=== PATIENT | female | born 1990 | race African-American/Black ===

== ENCOUNTER 2017-09-13 19:22 | Emergency (ER) | payer OTHER ==
[2017-09-13 19:35] VITALS: BP 145/94; PULSE 82; TEMP 98.7; BMI 29.5
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
--- NOTE | 2017-09-13 20:18 | PDOC ---
History of Present Illness - General Chief Complaint: Injury Stated Complaint: FALL/INJURY Time Seen by Provider: 09/13/17 19:31 History Source: Patient - History of Present Illness Occurred: reports: this evening Pain Location: reports: back, neck, upper extremity Past History - Past Medical History Allergies/Adverse Reactions: Allergies Allergy/AdvReac Type Severity Reaction Status Date / Time No Known Allergies Allergy Verified 09/13/17 20:42 Home Medications: Ambulatory Orders Albuterol Sulfate Inhaler - [Ventolin Hfa Inhaler -] 2 inh PO Q4H 09/13/17 Cyclobenzaprine HCl [Flexeril -] 10 mg PO TID #9 tablet 09/13/17 Ibuprofen [Motrin -] 600 mg PO QID #28 tablet 09/13/17 Ranitidine HCl [Zantac] 150 mg PO ASDIR 09/13/17 COPD: No - Suicide/Smoking/Psychosocial Hx Smoking History: Never smoked Review of Systems - Review of Systems HEENTM: No: Blurred Vision ABD/GI: No: Vomiting Neurological: Yes: Headache. No: Dizziness *Physical Exam - Vital Signs Last Vital Signs Temp Pulse Resp BP Pulse Ox 98.7 F 82 18 145/94 96 09/13/17 19:30 09/13/17 19:30 09/13/17 19:30 09/13/17 19:30 09/13/17 19:30 - Physical Exam General Appearance: Yes: Appropriately Dressed, Mild Distress HEENT: positive: Normal Voice. negative: Scleral Icterus (R), Scleral Icterus ( L) Neck: positive: Tender (to b/l neck, no midline ttp, FROMI, UE strength intact b /l), Supple Respiratory/Chest: negative: Respiratory Distress Gastrointestinal/Abdominal: positive: Soft. negative: Tender Musculoskeletal: positive: Other (diffuse ttp to abck) Extremity: positive: Normal Inspection. negative: Tender, Swelling Integumentary: positive: Dry, Warm Neurologic: positive: Fully Oriented, Alert, Normal Mood/Affect Medical Decision Making - Medical Decision Making 09/13/17 20:17 27-year-old female, no significant history with multiple complaints status post fall on black ice tonight. She states she fell onto her back and hit the back of her head, but no LOC, dizziness, nausea, vomiting or visual changes. Does report some pain to occiput, neck and back diffusely. Also complaining of pain to LUE. Patient in mild distress but stable and neurologically intact. No signs of serious injury at this time and doubt pt need any imaging. Patient, however, insists on getting x-rays that was ordered from triage. Pain control in ER 09/13/17 22:17 X-rays unremarkable. Will discharge with pain control and PMD follow-up as needed *DC/Admit/Observation/Transfer Diagnosis at time of Disposition: Neck strain Qualifiers: Encounter type: initial encounter Qualified Code(s): S16.1XXA - Strain of muscle, fascia and tendon at neck level, initial encounter Back strain Qualifiers: Encounter type: initial encounter Qualified Code(s): S39.012A - Strain of muscle, fascia and tendon of lower back, initial encounter - Discharge Dispostion Disposition: HOME Condition at time of disposition: Improved - Prescriptions Prescriptions: Cyclobenzaprine HCl [Flexeril -] 10 mg PO TID #9 tablet Ibuprofen [Motrin -] 600 mg PO QID #28 tablet - Referrals Referrals: Ramesh Fish MD [Primary Care Provider] - - Patient Instructions Printed Discharge Instructions: Muscle Strain Additional Instructions: Your x-rays are all negative. Take Motrin and Flexeril as prescribed and follow -up with your primary care physician - Post Discharge Activity
[2017-09-13] MEDS ORDERED: IBUPROFEN 400 MG TABLET (FP) PO ONE (20:37)
== END 2017-09-13 22:23 | disposition home or self-care (01) ==
LOC: JERFT 19:22
DX: S16.1XXA Strain of muscle, fascia and tendon at neck level, initial encounter (principal); S39.012A Strain of muscle, fascia and tendon of lower back, initial encounter; W00.2XXA Other fall from one level to another due to ice and snow, initial encounter; Y93.89 Activity, other specified; Y92.89 Other specified places as the place of occurrence of the external cause; Y99.9 Unspecified external cause status; Y99.8 Other external cause status
CPT/HCPCS: 72050-TC; 72100-TC; 73030-TC-LT; 73060-TC-LT; 73110-TC-LT; 73130-TC-LT; 84703; 99281-25

== ENCOUNTER 2019-05-23 14:25 | Emergency (ER) | payer OTHER ==
[2019-05-23 14:43] VITALS: BP 118/68; PULSE 74; TEMP 98.7; BMI 32.0
--- NOTE | 2019-05-23 15:14 | PDOC ---
History of Present Illness - General Chief Complaint: Edema Stated Complaint: LUMP TO RIGHT LOWER LEG SINCE JANUARY History Source: Patient Exam Limitations: No Limitations - History of Present Illness Initial Comments: 29 yo F with a hx of genital herpes and asthma presents to the emergency department with leg lesion on the right side. Per the patient, she states it has been ongoing since January 2019. She denies traumatic event prior to the onset. It is not painful, but tender with palpation. The patient denies recent trauma. Denies rash. Allergies: NKDA Past History - Past Medical History Allergies/Adverse Reactions: Allergies Allergy/AdvReac Type Severity Reaction Status Date / Time No Known Allergies Allergy Verified 05/23/19 14:27 COPD: No Other medical history: GENITAL HERPES - Suicide/Smoking/Psychosocial Hx Smoking History: Current every day smoker Number of Cigarettes Smoked Daily: 1 Information on smoking cessation initiated: No Hx Alcohol Use: Yes (OCCASSIONAL) Drug/Substance Use Hx: Yes (MARIJUANA) Review of Systems - Review of Systems Able to Perform ROS?: Yes Is the patient limited Tamazight proficient: No Constitutional: No: Chills, Diaphoresis, Fever HEENTM: No: Eye Pain, Ear Pain, Nose Pain, Throat Pain, Mouth Pain Respiratory: No: Cough, Shortness of Breath Cardiac (ROS): No: Chest Pain, Lightheadedness ABD/GI: No: Constipated, Diarrhea, Nausea, Rectal Bleeding, Vomiting, Tarry Stools : No: Burning, Hematuria Musculoskeletal: Yes: Muscle Pain (right anterior leg, right posterior calf). No: Back Pain, Joint Pain Integumentary: Yes: Lumps (right anterior leg). No: Bruising, Erythema, Rash Neurological: No: Headache, Numbness, Tingling, Tremors Psychiatric: No: Change in Appetite Endocrine: No: Unexplained Weight Gain Hematologic/Lymphatic: No: Anemia, Blood Clots *Physical Exam - Vital Signs Last Vital Signs Temp Pulse Resp BP Pulse Ox 98.7 F 74 16 118/68 100 05/23/19 14:26 05/23/19 14:26 05/23/19 14:26 05/23/19 14:05/23/19 14:26 - Physical Exam General Appearance: Yes: Nourished, Appropriately Dressed. No: Apparent Distress, Intoxicated HEENT: positive: EOMI, DANIEL, Normal ENT Inspection, Normal Voice, Symmetrical, TMs Normal, Pharynx Normal, Hearing Grossly Normal. negative: Pale Conjunctivae , Scleral Icterus (R), Scleral Icterus (L), Muffled/Hoarse voice, Excessive drooling Neck: positive: Trachea midline, Supple. negative: Tender, Lymphadenopathy (R) , Lymphadenopathy (L), Tender lateral, Tender midline Respiratory/Chest: positive: Lungs Clear, Normal Breath Sounds. negative: Chest Tender, Respiratory Distress, Accessory Muscle Use, Rhonchi, Stridor, Wheezing Cardiovascular: positive: Regular Rhythm, Regular Rate, S1, S2. negative: Systolic Murmur Gastrointestinal/Abdominal: positive: Normal Bowel Sounds, Flat, Soft. negative : Tender Lymphatic: negative: Adenopathy Musculoskeletal: positive: Normal Inspection. negative: CVA Tenderness, Vertebral Tenderness Extremity: positive: Normal Capillary Refill, Normal Range of Motion, Tender ( right anterior leg. ). negative: Normal Inspection (varicose veins present on right leg. lentigo present on sole of right foot. no tenderness to posterior calf.), Swelling Integumentary: positive: Normal Color, Dry, Warm Neurologic: positive: Fully Oriented, Alert, Normal Mood/Affect Medical Decision Making - Medical Decision Making 29 yo F with a hx of genital herpes and asthma presents to the emergency department with leg lesion on the right side. Per the patient, she states it has been ongoing since January 2019 Initial vitals: Initial Vital Signs Temp Pulse Resp BP Pulse Ox 98.7 F 74 16 118/68 100 05/23/19 14:26 05/23/19 14:26 05/23/19 14:26 05/23/19 14:26 05/23/19 14:26 work up: POCUS reveals the area of concern not to be vascular in nature. no abscess. based on consistency of the lesion, likely a lipoma as it is freely moveable with fibrous consistency. No erythema on the site. Leg circumference is 42 cm bilaterally. Will discharge patient. dx lipoma. *DC/Admit/Observation/Transfer Diagnosis at time of Disposition: Lentigo, Lipoma, Varicose vein of leg - Discharge Dispostion Disposition: HOME Condition at time of disposition: Stable - Referrals Referrals: Ramesh Fish MD [Staff Physician] - - Patient Instructions Printed Discharge Instructions: DI for Varicose Veins, DI on Treatment of Varicose Veins of the Leg Additional Instructions: You were seen for your leg lesion. We have concluded it is a lipoma. Please follow up with Dr. Fish within 1 week after discharge for follow up care and management. Thank you. Please review the documents provided for varicose vein treatments. - Post Discharge Activity Forms/Work/School Notes: Back to Work
--- NOTE | 2019-05-23 15:18 | PDOC ---
Attending Attestation - Resident Resident Name: GracyJose - ED Attending Attestation I have performed the following: I have examined & evaluated the patient, The case was reviewed & discussed with the resident, I agree w/resident's findings & plan, Exceptions are as noted - HPI HPI: 05/23/19 15:13 Concerned about a lump anterior right calf for many months. Mild pain especially with standing and walking. No enlargement. - Physicial Exam PE: 05/23/19 15:13 Physical exam reveals a soft tissue mass in the anteromedial right mid calf with the consistency of a lipoma. No erythema, induration,edema, or appreciable tenderness to palpation. It is freely movable. No posterior calf swelling or tenderness. Leg circumference 4 cm below the knee 42 cm bilaterally. 05/23/19 15:16 - Medical Decision Making 05/23/19 15:14 Assessment: Lipoma Plan:r plan: Reassure
== END 2019-05-23 15:16 | disposition home or self-care (01) ==
LOC: FER 14:25
DX: D17.23 Benign lipomatous neoplasm of skin and subcutaneous tissue of right leg (principal); L81.4 Other melanin hyperpigmentation; I83.91 Asymptomatic varicose veins of right lower extremity; J45.909 Unspecified asthma, uncomplicated; F17.210 Nicotine dependence, cigarettes, uncomplicated; Z87.42 Personal history of other diseases of the female genital tract
CPT/HCPCS: 99281-25

== ENCOUNTER 2019-09-08 13:46 | Emergency (ER) | payer OTHER ==
--- NOTE | 2019-09-08 13:58 | PDOC ---
History of Present Illness - General Chief Complaint: Back Pain Stated Complaint: BACK PAIN Time Seen by Provider: 09/08/19 13:57 History Source: Patient Past History - Past Medical History Allergies/Adverse Reactions: Allergies Allergy/AdvReac Type Severity Reaction Status Date / Time cat dander Allergy Verified 09/08/19 13:51 dog dander Allergy Verified 09/08/19 13:51 Home Medications: Ambulatory Orders Acetaminophen [8Hr Arthritis Pain] 650 mg PO TID PRN #21 tablet.er 09/08/19 Ibuprofen 800 mg PO PRN 09/08/19 Ibuprofen [Motrin -] 600 mg PO TID #21 tablet 09/08/19 Naproxen 500 mg PO PRN 09/08/19 COPD: No - Psycho Social/Smoking Cessation Hx Smoking History: Current every day smoker Number of Cigarettes Smoked Daily: 1 Hx Alcohol Use: Yes (OCCASSIONAL) Drug/Substance Use Hx: Yes (MARIJUANA) Discharge - Discharge Information Problems reviewed: Yes Clinical Impression/Diagnosis: Low back pain Qualifiers: Chronicity: chronic Back pain laterality: right Sciatica presence: without sciatica Qualified Code(s): M54.5 - Low back pain Condition: Stable - Admission No - Additional Discharge Information Prescriptions: Acetaminophen [8Hr Arthritis Pain] 650 mg PO TID PRN #21 tablet.er PRN Reason: Back Pain Ibuprofen [Motrin -] 600 mg PO TID #21 tablet - Follow up/Referral Referrals: Monster Aquino MD [Staff Physician] - Karlos Diggs MD [Staff Physician] - Neri Wade MD [Staff Physician] - Mike Champion MD [Non Staff, Medical] - Royal Padilla MD [Staff Physician] - - Patient Discharge Instructions Patient Printed Discharge Instructions: DI for Low Back Pain Additional Instructions: You were seen in the ER for back pain. Please be sure to follow up with a landscape painter. We are giving a referral to a pain medicine doctor as well as a physical medicine and rehabilitation doctor. Please see them as soon as possible, as well as your primary care physician as soon as possible. Return to the ER if you are unable to walk, are unable to hold your urine, become weak , or develop a high fever. Physical therapy location near [facility] in [place]: [address] - Post Discharge Activity Work/Back to School Note: Back to Work
[2019-09-08 14:02] VITALS: BP 140/80; PULSE 88; TEMP 97.8; BMI 33.2
[2019-09-08] MEDS ORDERED: KETOROLAC TROMETHAMINE 15 MG/ML VIAL IM ONE (14:32)
[2019-09-08] MEDS ORDERED: DEXAMETHASONE SOD PHOSPHATE 4 MG/1 ML VIAL IM ONE (14:32)
[2019-09-08] MEDS ORDERED: KETOROLAC TROMETHAMINE 30 MG/1 ML VIAL ONE (14:43)
[2019-09-08] MEDS ORDERED: DEXAMETHASONE SOD PHOSPHATE 10 MG/1 ML VIAL ONE (14:43)
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
== END 2019-09-08 15:48 | disposition home or self-care (01) ==
LOC: FER 13:46
PROC: 3E0233Z Introduction of Anti-inflammatory into Muscle, Percutaneous Approach (ICD-10-PCS; principal; 2019-09-08)
PROC: 3E023GC Introduction of Other Therapeutic Substance into Muscle, Percutaneous Approach (ICD-10-PCS; 2019-09-08)
DX: M54.5 Low back pain (principal); F17.210 Nicotine dependence, cigarettes, uncomplicated
CPT/HCPCS: 99282-25

== ENCOUNTER 2021-06-16 10:05 | Emergency (ER) | payer OTHER ==
[2021-06-16 10:51] VITALS: BP 132/83; PULSE 86; TEMP 97.8; BMI 28.5
== END 2021-06-16 10:55 | disposition home or self-care (01) ==
LOC: FER 10:05
DX: U07.1 COVID-19 (principal)
CPT/HCPCS: 99283-25